=== PATIENT | male | born 1985 | race Two or more races ===

== ENCOUNTER 2017-09-05 13:49 | Emergency (ER) | payer OTHER ==
[~2017-09-05] VITALS: Ht 162.6 cm; Wt 68.0 kg
--- NOTE | 2017-09-05 14:19 | Emergency Room Report ---
History of Present Illness General Chief Complaint: Alcohol Intoxication Source: EMS Present Illness HPI Patient 32-year-old male who presented after increased altered mental status. Patient recent heavy alcohol use. He had prior history of alcohol abuse. He had not been vomiting. The patient brought in by EMS. Allergies: Coded Allergies: No Known Allergies (Unverified , 09/05/17) Patient History Past Medical History: see triage record Reviewed Nursing Documentation: PMH: Agreed; PSxH: Agreed Nursing Documentation-PMH Hx Diabetes: Yes Review of Systems All Other Systems: limited - by poor historian Physical Exam Vital Signs Date Time Temp Pulse Resp B/P (MAP) Pulse Ox O2 Delivery O2 Flow Rate FiO2 09/05/17 13:44 99.0 107 17 125/91 100 Room Air 99.0 General Appearance: well appearing, no apparent distress, alert Head: normocephalic, atraumatic ENT: hearing grossly normal, normal voice Neck: full range of motion, supple Respiratory: lungs clear, normal breath sounds, no respiratory distress, speaking full sentences Cardiovascular #1: normal peripheral pulses, regular rate, rhythm, no edema Gastrointestinal: normal inspection, normal bowel sounds, soft, no mass Musculoskeletal: normal inspection, no calf tenderness Neurologic: normal inspection, alert, oriented x3, responsive, 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 Differential diagnosis included but was not limited to alcohol intoxication, ischemic stroke, subarachnoid hemorrhage, hypoglycemia, spinal cord injury, neurodegenerative disorder, urinary tract infection, hypoxemia. Patient has a benign exam and does not appear to require any further imaging or laboratory testing at this time. The patient initially appears to be mildly intoxicated with alcohol. The patient was noted to have gradual improvement in his mental status. Patient subsequently ambulatory to the bathroom without assistance. The patient was noted to have subsequently left the department without notifying staff. Last Vital Signs Date Time Temp Pulse Resp B/P (MAP) Pulse Ox O2 Delivery O2 Flow Rate FiO2 09/05/17 13:44 99.0 107 17 125/91 100 Room Air 99.0 Status: improved Disposition: ELOPED Condition: Stable Scripts Unable to Obtain Active Prescriptions or Reported Meds Jhonathan Loredo September 05, 2017 14:19
[2017-09-05 14:20] VITALS: BP 112/57
[2017-09-05 16:21] VITALS: BP 112/57
== END 2017-09-05 16:22 | disposition left against medical advice (07) ==
LOC: EDBD 13:49 → EMR 14:56
DX: F10.129 Alcohol abuse with intoxication, unspecified (principal); E11.9 Type 2 diabetes mellitus without complications
CPT/HCPCS: 99283